=== PATIENT | female | born 1970 | race Caucasian/White ===

== ENCOUNTER → 2017-07-27 | Outpatient (CLI) | payer OTHER ==
--- NOTE | 2017-07-27 08:07 | MR ---
EXAMINATION TYPE: MR cervical spine wo con DATE OF EXAM: 07/27/2017 7:34 AM COMPARISON: NONE HISTORY: Cervicalgia, MARSH Multiplanar MultiSpin echo imaging of the cervical spine was performed. Comparison: none C2-C3: No evidence for degenerative disc disease. No disc bulge/herniation or protrusion. No Canal stenosis. Foramina are patent bilaterally. C3-C4: No evidence for degenerative disc disease. No disc bulge/herniation or protrusion. No Canal stenosis. Foramina are patent bilaterally. C4-C5: Moderate to severe disc desiccation. Posterocentral and greater towards the left subligamentou s disc herniation with effacement of the ventral thecal sac and ventral cord contact. There is eviden ce of mild to moderate central stenosis. Left foraminal encroachment. Increased signal within the cer vical spinal cord indicating a compressive myelopathy. C5-C6: Severe disc desiccation. Posterocentral moderate broad-based subligamentous disc herniation ef faces the ventral thecal sac. Mild mass effect upon the anterior portion of the cervical spinal cord. [id number] central stenosis. Bilateral foraminal encroachment. C6-C7: Moderate to severe disc desiccation. Posterocentral and greater towards the left subligamentou s disc herniation with effacement of the ventral thecal sac and ventral cord contact. There is eviden ce of mild to moderate central stenosis. Bilateral foraminal encroachment. Increased signal within th e cervical spinal cord indicating a compressive myelopathy. C7-T1: No evidence for degenerative disc disease. No disc bulge/herniation or protrusion. No Canal stenosis. Foramina are patent bilaterally. Cervical segments are intact. There is normal alignment. Cervical spinal cord is of normal signal. Craniovertebral junction relationships are within normal limits. Ventral spondylosis noted. IMPRESSION: 1. Multilevel degenerative disc disease with multilevel disc herniations and central stenosis. Compre ssive myelopathy as outlined above.
== END ==
LOC: RADMRIMAIN 06:46
PROVIDERS: ATTEND Family Medicine
DX: M48.02 Spinal stenosis, cervical region (principal); M50.223 Other cervical disc displacement at C6-C7 level; M50.30 Other cervical disc degeneration, unspecified cervical region; G95.20 Unspecified cord compression
CPT/HCPCS: 72141

== ENCOUNTER → 2021-05-13 | Outpatient (CLI) | payer MEDICARE ==
--- NOTE | 2021-05-14 07:46 | US ---
EXAMINATION TYPE: US thyroid st tissue head/neck DATE OF EXAM: 05/13/2021 COMPARISON: NONE CLINICAL HISTORY: E07.9 Thyroid Disorder. not on meds, patient states her neck feel swollen GLAND SIZE: Right Lobe: 3.6 x 1.5 x 1.5 cm Overall Parenchyma: homogenous Left Lobe: 3.6 x 1.4 x 1.1 cm Overall Parenchyma: homogeneous Isthmus Thickness: 0.4 cm NODULES RIGHT: # of nodules measured on right: 0 LEFT: # of nodules measured on left: 0 ISTHMUS: # of nodules measured in the isthmus: 0 Bilateral neck scanned, no evidence of lymphadenopathy. IMPRESSION: Normal-appearing thyroid gland. 2017 ACR TI-RADS LEVEL: *Highest TI-RADS level nodule reported
== END | disposition home or self-care (01) ==
LOC: RADUSWWP 15:45
PROVIDERS: ATTEND Family Medicine
DX: E07.9 Disorder of thyroid, unspecified (principal)
CPT/HCPCS: 76536

== ENCOUNTER 2021-06-27 08:33 | Day surgery (SDC) | payer MEDICARE ==
[2021-06-26 08:41] VITALS: BMI 31.7
--- NOTE | 2021-06-26 21:29 | HP ---
HISTORY AND PHYSICAL CHIEF COMPLAINT: Chronic laryngitis. HISTORY OF PRESENT ILLNESS: This patient is a 50-year-old female who is a known smoker. She presented to my office complaining of having chronic laryngitis with a 3- to 4-month history. The patient states that she is trying to quit, and she is down to approximately 5 to 10 cigarettes per day. Her voice has been quite raspy for the past 3 to 4 months. She denies any difficulty swallowing or referred otalgia or sore throat. At the time that she was seen in my office, examination of the larynx including indirect laryngoscopy revealed there was significant erythema and swelling of the vocal cords. I was not able to assess the anterior aspect of the true vocal cords because the patient has an overhanging epiglottis. There were no significant lesions noted in the right or left piriform sinus, base of tongue, valleculae or hypopharynx. Because of the patient's history of heavy smoking, it was recommended that she undergo a suspension microlaryngoscopy with possible lase of any type of benign lesions such as a polyp or nodule if found. Past medical history reveals she has NO KNOWN ALLERGIES TO MEDICATIONS. Current medications include Neurontin, Abilify, Protonix, Condon, Adderall, citalopram, diclofenac, Zofran, atorvastatin, Flexeril and Xanax. Previous surgeries include bilateral total knee replacements, right shoulder surgery, cholecystectomy, ankle surgery, oophorectomies and biopsy of her tongue approximately two years ago. REVIEW OF SYSTEMS: Cardiovascular is negative. Respiratory is positive for COPD/emphysema. The patient has a history of sleep apnea and uses a CPAP machine. Gastrointestinal is positive for GERD. Metabolic/endocrine is positive for hypercholesterolemia. Musculoskeletal is positive for osteoarthritis. The remainder of the review of system is essentially unremarkable. OBJECTIVE: The patient is normocephalic. Tympanic membranes are normal. Middle ear spaces are free of any fluid or infection. Pupils are equal, round, reactive to light and accommodation. Extraocular movements are within normal limits. Intranasal examination reveals moderate to severe septal deviation with compensatory hypertrophy of the inferior turbinates and a moderate amount of mucus on the mucous membranes and draining down the posterior pharynx. Examination of the larynx is as described above in the history of present illness. It will but not be repeated here. Palpation of the neck, cranial nerves 2 through 12, and the remainder of the head and neck exam are all within normal limits. Chest/cardiovascular: Both lung winslow are clear to percussion and auscultation. The patient is in regular sinus rhythm. S1 and S2 are present without evidence of any murmurs, S3s or S4s. Peripheral pulses are bilaterally symmetrical. Abdomen: There is no evidence any masses, megaly or tenderness. Abdomen is soft. Skin is unremarkable. Musculoskeletal and neurological are within normal limits. Pelvic/rectal exam is deferred at this time because the patient has this done on a regular basis at her family physician's office. The remainder of the physical exam is essentially unremarkable. IMPRESSION: Chronic laryngitis; suspect laryngeal lesion. PLAN: The patient is scheduled undergo a suspension microlaryngoscopy with possible laser under general anesthesia in a.m. Attention RNs in the pre-surgical area: I have ordered for this patient to receive 1000 mg of Ofirmev IV to be given once an intravenous line has been established. In addition to this, I have ordered for her to receive 3 grams of Ancef IV to be given once an intravenous line has been established. The Ancef is prophylaxis for her bilateral knee replacements. If the pharmacy department sends a different pre- surgical prophylactic antibiotic to the pre-surgical area for this patient, please cancel that order and return the medication to the pharmacy. Also make sure that the patient's account is credited appropriately. I have discussed the risks, benefits and alternative therapies for the above- mentioned procedure and for both sedation/analgesia as well as necessary blood product administration, if indicated, as they pertain to this patient. The patient has indicated his or her understanding and acceptance of the risks and procedures discussed. MMODL / IJN: [id number] / LIZETH
[~2021-06-27 08:33] MED LIST: ACETAMINOPHEN IV (For NPO) 1,000 MG in EMPTY BAG 1 BAG IVPB PRN; DEXAMETHASONE SOD PHOSPHATE 4 MG/ML 1 ML VIAL IV ONE; HYDROmorphone 0.5 MG/0.5 ML SYRINGE IVP PRN; LACTATED RINGERS 1,000 ML IV SCH; MIDAZOLAM 2 MG/2 ML VIAL IV PRN; ONDANSETRON 4 MG/2 ML VIAL IVP ONE; Pre Op ABX Message 1 EACH MISC MISCELLANE ONE; SCOPOLAMINE 1.5MG/72HR PATCH TRANSDERM ONE
[2021-06-27] MEDS ORDERED: LACTATED RINGERS 1,000 ML IV ONE (08:51)
[2021-06-27] MEDS ORDERED: MIDAZOLAM 2 MG/2 ML VIAL ONE (09:52)
[2021-06-27] MEDS ORDERED: SUCCINYLCHOLINE CHLORIDE 100 MG/5 ML SYR IV ONE (09:52)
[2021-06-27] MEDS ORDERED: fentaNYL (PF) 50 MCG/ML 2 ML AMP ONE (09:52)
[2021-06-27] MEDS ORDERED: DEXAMETHASONE SOD PHOSPHATE 10 MG/ML 1 ML VIAL ONE (09:52)
[2021-06-27] MEDS ORDERED: PROPOFOL 10 MG/ML 20 ML VIAL IV ONE (09:52)
[2021-06-27 11:05] VITALS: TEMP 97.3
[2021-06-27 11:28] VITALS: RESP 16
[2021-06-27 12:09] VITALS: BP 131/76; PULSE 68
--- NOTE | 2021-06-29 19:17 | OP ---
OPERATIVE REPORT DATE OF SURGERY: 06/27/2021 PREOPERATIVE DIAGNOSIS: Chronic laryngitis. POSTOPERATIVE DIAGNOSIS: Chronic laryngitis with a biopsy of the left true vocal cord, pathology pending. ANESTHESIA: General. PROCEDURE: Suspension microlaryngoscopy with biopsy of the left true vocal cord and CO2 laser of the left true vocal cord. OPERATING SURGEON: Dr. Loomis. COMPLICATIONS: None. ESTIMATED BLOOD LOSS: Zero. OPERATIVE PROCEDURE: The patient was placed on the operating table in supine position and after uneventful induction and endotracheal intubation, satisfactory general anesthesia was obtained. Next, the patient was draped in the usual and customary fashion, and following this, using the direct laryngoscope, this was introduced into the oropharynx and the entire hypopharynx including the right and left piriform sinus, and base of tongue, valleculae and epiglottis were inspected. Next, the tip of the laryngoscope was introduced into the laryngeal introitus. The Lewy apparatus was attached to the handle of the laryngoscope and the laryngoscope was suspended on the patient's chest. Next using the Zeiss operating microscope and under magnified visualization, one could see that the right true vocal cord appeared to be somewhat edematous but the left vocal cord appeared to have a polypoid-like change on the left on its edges. Therefore, using a pair of up-biting microlaryngeal forceps, several biopsies of left true vocal cord only were taken. Next, the entire left vocal cord was lasered using the CO2 laser at the appropriate setting. The patient was given 10 mg of Decadron intraoperatively to reduce any postoperative laryngeal edema. At this point, the procedure was terminated. There were no intraoperative complications. Patient tolerated the procedure well and was returned to the recovery room in satisfactory condition. MMODL / IJN: [id number] /
== END 2021-06-27 12:43 | disposition home or self-care (01) ==
LOC: OR 08:33
PROVIDERS: ATTEND Otolaryngology
DX: J37.0 Chronic laryngitis (principal); F17.210 Nicotine dependence, cigarettes, uncomplicated; J43.9 Emphysema, unspecified; K21.9 Gastro-esophageal reflux disease without esophagitis; E78.00 Pure hypercholesterolemia, unspecified; M19.90 Unspecified osteoarthritis, unspecified site; G47.33 Obstructive sleep apnea (adult) (pediatric); F41.9 Anxiety disorder, unspecified; F31.9 Bipolar disorder, unspecified; Z79.899 Other long term (current) drug therapy; Z96.653 Presence of artificial knee joint, bilateral; Z90.49 Acquired absence of other specified parts of digestive tract; Z90.722 Acquired absence of ovaries, bilateral; Z98.890 Other specified postprocedural states; Z98.1 Arthrodesis status; Z90.89 Acquired absence of other organs
CPT/HCPCS: 88305; 31541; J2250; J1100 ×2; J0690; J2405; J3010; J0131; J0330; J2704; J1170

== ENCOUNTER → 2021-10-29 | Outpatient (CLI) | payer MEDICARE ==
--- NOTE | 2021-10-29 13:11 | MR ---
EXAMINATION TYPE: MR lumbar spine wo con DATE OF EXAM: 10/29/2021 11:39 AM COMPARISON: NONE HISTORY: Low back pain w/ radiculopathy Multiplanar, MultiSpin echo imaging of the lumbar spine was performed. L1-L2: Mild disc desiccation. Right paracentral disc bulge with mild effacement ventral thecal sac. N o evidence for central stenosis or lateral recess stenosis. Foramina are patent bilaterally. L2-L3: Mild disc desiccation. Posterocentral disc bulge with mild effacement ventral thecal sac. No e vidence for central stenosis or lateral recess stenosis. Foramina are patent bilaterally. L3-L4: Mild disc desiccation. Posterocentral disc bulge with mild effacement ventral thecal sac. No e vidence for central stenosis or lateral recess stenosis. Foramina are patent bilaterally. L4-L5: Moderate disc desiccation. Broad-based posterior disc bulge or mild herniation. Effacement binu tral thecal sac. Hypertrophy ligamentum flavum and facet joint arthropathy resulting in mild central stenosis. Left foraminal encroachment noted. L5-S1: Mild disc desiccation. Posterocentral disc bulge with mild effacement ventral thecal sac. No e vidence for central stenosis or lateral recess stenosis. Bilateral foraminal encroachment. there appears to be a transitional vertebral segment with partial lumbarization of S1 and rudimentary S1-S2 disc. Prior to any scheduled intervention radiographic correlation is advised. Lumbar segments are intact. No paraspinal masses are identified. Conus medullaris has a normal appe arance. IMPRESSION: 1. Multilevel degenerative disc disease. 2. Multilevel disc bulging greatest at L4-5 where there is mild central stenosis. See above
== END | disposition home or self-care (01) ==
LOC: RADMRIMAIN 11:04
PROVIDERS: ATTEND Orthopaedic Surgery
DX: M51.16 Intervertebral disc disorders with radiculopathy, lumbar region (principal); M48.061 Spinal stenosis, lumbar region without neurogenic claudication
CPT/HCPCS: 72148

== ENCOUNTER → 2022-12-09 | Outpatient (CLI) | payer MEDICARE ==
--- NOTE | 2022-12-09 12:44 | FL ---
EXAMINATION TYPE: FL barium swallow DATE OF EXAM: 12/09/2022 CLINICAL INDICATION: 52-year-old female R13.10, dysphagia. Food sticking. Difficulty swallowing. Refl ux at bed. COMPARISON: None Total Fluoroscopy Time: 2 minutes 40 seconds 466 mGycm2 DAP 64 images obtained. FINDINGS: Patient is status post C4-C7 ACDF. There are recurrent episodes of deep penetration and coating of the vocal folds and eventual mild asp iration. Otherwise, hypopharyngeal anatomy appears maintained. Normal course of the thoracic esophagus. There is lobulated irregularity of the distal esophagus, possibly representing combination of pulse i n diverticula and mild strictures. Recommend direct visualization to further evaluate. Additional mild tertiary peristalsis is demonstrated. Mild delay in clearance of contrast from the es ophagus. Due to the aspiration, we did not perform further supine/prone imaging to assess for reflux IMPRESSION: 1. Recurrent episodes of deep penetration with coating of the vocal folds and eventual mild aspiratio n. Recommend further speech pathology evaluation. 2. [id number] esophageal dysmotility. 3. Prominent lobulated irregularity of the distal esophagus could be on the basis of pulsion divertic sheri and strictures. Recommend direct visualization to exclude a mucosal abnormality here.
== END | disposition home or self-care (01) ==
LOC: RADUSWWP 09:49
PROVIDERS: ATTEND Family Medicine
DX: K22.4 Dyskinesia of esophagus (principal); R13.10 Dysphagia, unspecified; R49.0 Dysphonia
CPT/HCPCS: 74220

== ENCOUNTER 2024-10-04 09:21 | Emergency (ER) | payer MEDICARE ==
[2024-10-04 09:27] VITALS: PULSE 52; TEMP 97.5
[2024-10-04 11:39] LABS: Basophils # (A) 0.02 10*3/uL (0.00-0.10); Basophils % (A) 0.2 %; Eosinophils # (A) 0.01 10*3/uL (0.04-0.35); Eosinophils % (A) 0.1 %; HCT 43.2 % (37.2-46.3); HGB 14.9 g/dL (12.0-15.0); Lymphocytes # (A) 1.19 10*3/uL (0.90-5.00); Lymphocytes % (A) 11.6 %; MCH 32.2 pg (27.0-32.0); MCHC 34.5 g/dL (32.0-37.0); MCV 93.3 fL (80.0-97.0); Mean Platelet Volume 9.4 fL (9.5-12.2); Monocytes % (A) 6.8 %; Neutrophils # (A) 8.32 10*3/uL (1.80-7.70); Neutrophils % (A) 80.8 %; Platelet Count 287 10*3/uL (140-440); RBC 4.63 10*6/uL (4.10-5.20); RDW 12.1 % (11.5-14.5); WBC 10.29 10*3/uL (4.50-10.00)
[2024-10-04] MEDS: LACTATED RINGERS 1,000 ML IV ONE (11:58)
[2024-10-04 11:59] LABS: ALT 18 U/L (4-34); African American GFR (CKD) >90 (>60 ml/min/1.73 sqM); Amylase 37 U/L (30-110); Anion Gap 9 mmol/L; Blood Urea Nitrogen 16 mg/dL (7-17); Calcium 10.4 mg/dL (8.4-10.2); Carbon Dioxide 23 mmol/L (22-30); Chloride 100 mmol/L (98-107); Glucose 183 mg/dL (74-99); Lipase 67 U/L (23-300); Non-African American GFR(CKD) >90 (>60 ml/min/1.73 sqM); Sodium 132 mmol/L (137-145)
[2024-10-04] MEDS: PANTOPRAZOLE 40 MG/10 ML VIAL IVP STA (11:59)
[2024-10-04] MEDS: ONDANSETRON 4 MG/2 ML VIAL IVP STA (11:59)
[2024-10-04 12:01] LABS: INR 1.1 (<1.2); Partial Thromboplastin Time 21.7 sec (22.0-30.0); Prothrombin Time 11.8 sec (10.0-12.5)
[2024-10-04 12:31] LABS: AST 36 U/L (14-36); Albumin 4.8 g/dL (3.5-5.0); Total Bilirubin 1.1 mg/dL (0.2-1.3)
[2024-10-04 12:32] LABS: Alkaline Phosphatase 68 U/L (38-126)
[2024-10-04] MEDS: HYDROmorphone 1 MG/ML 1 ML SYRINGE IVP STA (12:39)
--- NOTE | 2024-10-04 13:41 | CT ---
EXAMINATION TYPE: CT abdomen pelvis w con CT DLP: 1126.2 mGycm, Automated exposure control for dose reduction was used. DATE OF EXAM: 10/04/2024 1:32 PM COMPARISON: None CLINICAL INDICATION:Female, 54 years old with history of abdominal pain; ABD pain TECHNIQUE: Standard CT of the abdomen and pelvis following the administration of 100 cc of Isovue 3 00 IV contrast material. Coronal and sagittal reformats were performed. FINDINGS: LOWER CHEST: Minimal posterior dependent subsegmental atelectasis is noted. ABDOMEN LIVER: Focal fatty infiltration adjacent to the falciform ligament in segment IVb GALLBLADDER AND BILE DUCTS: Gallbladder is surgically absent with mild intrahepatic and extra hepatic biliary dilatation likely physiologic and a postcholecystectomy change. No evidence of choledocholit hiasis. PANCREAS: Unremarkable. SPLEEN: Unremarkable. ADRENAL GLANDS: Unremarkable. KIDNEYS AND URETERS: No evidence of hydronephrosis or renal calculus. The kidneys enhance symmetrical ly. Contrast is demonstrated within both collecting systems on the delayed phase. PELVIS BLADDER: Incompletely distended but grossly unremarkable. REPRODUCTIVE: Unremarkable. ABDOMEN & PELVIS STOMACH AND BOWEL: Stomach and duodenum are unremarkable. The appendix is within normal limits. There is some submucosal fat deposition with trace stranding involving the ascending colon. No evidence of bowel obstruction. PERITONEUM: No evidence of pneumoperitoneum or free fluid. Enhancing soft tissue nodule measured 1.8 cm within the anterior upper left pelvis peritoneum (series 201, image 65). VASCULATURE: Mild to moderate atherosclerotic calcifications are present throughout the abdominal aor ta and its branches. No evidence of aortic aneurysm. MUSCULOSKELETAL: No acute osseous abnormalities. Mild S-shaped scoliotic curvature of the thoracolumb ar spine. Grade 1 retrolisthesis of L3 on L4. Multilevel degenerative disc disease. L5 transverse pro cess pseudoarticulation with the sacrum. LYMPH NODES: No evidence for lymphadenopathy. SOFT TISSUE/ABDOMINAL WALL: Unremarkable IMPRESSION: 1. Submucosal fat deposition with trace stranding changes along the ascending colon concerning for p ossible acute colitis. Possibly from an infectious or inflammatory etiology. 2. Nonspecific enhancing soft tissue nodule within the anterior upper left pelvis. Recommend further evaluation with outpatient ultrasound. [facility], , 10/04/2024 1:39 PM
[2024-10-04 13:47] LABS: Amorphous Sediment,Urine Rare /hpf; Appearance,Urine Cloudy (Clear); Bilirubin,Urine Negative (Negative); Blood,Urine Negative (Negative); Budding Yeast,Urine Rare /hpf; Color,Urine Yellow; Glucose,Urine (UA) 1+ (Negative); Leukocyte Esterase,Urine Negative (Negative); Mucus,Urine Rare /hpf; Nitrite,Urine Negative (Negative); Protein,Urine Trace (Negative); RBC,Urine 2 /hpf (0-5); Urobilinogen,Urine <2.0 mg/dL (<2.0); WBC,Urine 4 /hpf (0-5)
[2024-10-04 13:51] LABS: Ketones,Urine 3+ (Negative)
--- NOTE | 2024-10-04 14:49 | ED ---
General Adult HPI - General Chief complaint: Nausea/Vomiting/Diarrhea Stated complaint: Vomiting Time Seen by Provider: 10/04/24 10:52 Source: patient, RN notes reviewed, old records reviewed Mode of arrival: ambulatory Limitations: no limitations - History of Present Illness Initial comments: Patient is a 54-year-old female who presents emergency department complaining of abdominal discomfort which is somewhat chronic as well as nausea and vomiting. Has somewhat chronic abdominal discomfort that is nonfocal. States worse over the last 2 days. Has been throwing up as well. Unable to tolerate oral intake as well as her chronic Percocets. Denies any diarrhea or constipation. Presents for further evaluation at this time. Does have a diagnosis of an esophageal dysmotility syndrome which she is following up with [facility] for. - Related Data Home Medications Medication Instructions Recorded Confirmed ALPRAZolam [Xanax] 3 mg PO DIRECTED PRN 05/08/15 08/29/24 traZODone HCL 100 mg PO HS 05/08/15 08/29/24 Atorvastatin [Lipitor] 80 mg PO HS 06/26/21 08/29/24 Gabapentin 600 mg PO TID 06/26/21 08/29/24 Pantoprazole [Protonix] 40 mg PO DAILY 08/23/24 08/29/24 Dicyclomine [Bentyl] 10 mg PO TID PRN 08/24/24 08/29/24 Glucosamine Sulfate 1 dose PO DAILY 08/24/24 08/29/24 Magnesium 1 dose PO DAILY 08/24/24 08/29/24 Meloxicam [Mobic] 15 mg PO DAILY 08/24/24 08/29/24 Multivit-Min/Iron Fum/Folic AC 1 each PO DAILY 08/24/24 08/29/24 [One-A-Day Women's Complete Tab] Naproxen Sodium [Aleve] 220 mg PO DAILY PRN 08/24/24 08/29/24 Ondansetron [Zofran] 4 mg PO TID PRN 08/24/24 08/29/24 oxyCODONE HCL/ACETAMINOPHEN 1 tab PO QID 08/24/24 08/29/24 [oxyCODONE HCL/ACETAMINOPHEN 7.5-325] Allergies Allergy/AdvReac Type Severity Reaction Status Date / Time haloperidol [From Haldol] Allergy Severe "Jaw Verified 10/04/24 09:27 locked up" and respiratory distress. metals Allergy Rash/Hives Uncoded 10/04/24 09:27 Review of Systems ROS Statement: Those systems with pertinent positive or pertinent negative responses have been documented in the HPI. Review of Systems: CONST: Denies fever EYES: Denies blurry vision ENT: Denies nasal congestion C/V: Denies Chest pain RESP: Denies shortness of breath GI: Endorses chronic abdominal pain : Denies dysuria SKIN: Denies rash. MSK: Denies joint pain. NEURO: Denies headache ROS Other: All systems not noted in ROS Statement are negative. Past Medical History Past Medical History: COPD, GERD/Reflux, Hyperlipidemia, Osteoarthritis (OA), Sleep Apnea/CPAP/BIPAP Additional Past Medical History / Comment(s): Gastritis. No CPAP use. Chronic lower back pain-Sacroiliitis. Had hospitalization June 2024 for ear infection- had one seizure due to very high fever. History of Any Multi-Drug Resistant Organisms: None Reported Past Surgical History: Adenoidectomy, Joint Replacement, Tonsillectomy Additional Past Surgical History / Comment(s): Bilateral knee replacements, left shoulder replacement, cervical fusion, bilateral oophorectomy, B/L ankle surgery. Past Anesthesia/Blood Transfusion Reactions: No Reported Reaction Past Psychological History: Anxiety, Bipolar Smoking Status: Current every day smoker Past Alcohol Use History: None Reported Past Drug Use History: Marijuana - Past Family History Mother Family Medical History: Cancer Father Family Medical History: Cancer Brother(s) Family Medical History: Cancer General Exam - General Exam Comments Initial Comments: General: Appears in mild distress secondary to abdominal pain. HEAD: Normal with no signs of head trauma. EYES: PERRLA, EOMI, conjunctiva normal, no discharge. ENT: Hearing grossly intact, normal oropharynx. RESPIRATORY: Clear breath sounds bilaterally. No wheezes, rales, or rhonchi. C/V: Regular rate and rhythm. S1 and S2 auscultated, no edema, peripheral pulses 2+ and intact throughout ABD: Abdomen soft, nondistended. Mildly tender to palpation periumbilically with no obvious acute focal tenderness. No guarding or rebound tenderness. No peritoneal signs. EXT: Normal range of motion, no obvious deformity SKIN: No rashes or lesions observed on exposed skin. NEURO: Alert and oriented x 4. Limitations: no limitations Course Vital Signs 10/04/24 10/04/24 09:23 15:03 Temperature 97.5 F L Pulse Rate 52 L 52 L Respiratory 18 20 Rate Blood Pressure 172/92 193/89 O2 Sat by Pulse 98 96 Oximetry Medical Decision Making - Medical Decision Making Was pt. sent in by a medical professional or institution (, [facility], [facility], urgent care, hospital, or senior living...) When possible be specific @ -No Did you speak to anyone other than the patient for history (EMS, parent, family, police, friend...)? What history was obtained from this source @ -No Did you review nursing and triage notes (agree or disagree)? Why? @ -I reviewed and agree with nursing and triage notes Were old charts reviewed (outside hosp., previous admission, EMS record, old EKG, old radiological studies, urgent care reports/EKG's, senior living records)? Report findings @ -Compared with EKG from April 2015 which shows chronic sinus bradycardia. Differential Diagnosis (chest pain, altered mental status, abdominal pain women, abdominal pain men, vaginal bleeding, weakness, fever, dyspnea, syncope, headache, dizziness, GI bleed, back pain, seizure, CVA, palpatations, mental health, musculoskeletal)? @ -Differential Abdominal Pain Women: Appendicitis, Cholecystitis, diverticulosis, ischemic bowel, pancreatitis, hepatitis, UTI, gastroenteritis, AAA, incarcerated hernia, bowel obstruction, constipation, inflammatory bowel, hepatitis, peptic ulcer disease, splenic infarction, perforated viscus, vulvitis, ovarian torsion, PID, kidney stone, placenta abruption, this is not meant to be an all-inclusive list EKG interpreted by me (3pts min.). @ -As above X-rays interpreted by me (1pt min.). @ -None done CT interpreted by me (1pt min.). @ -CT abdomen pelvis shows uncomplicated colitis U/S interpreted by me (1pt. min.). @ -None done What testing was considered but not performed or refused? (CT, X-rays, U/S, labs)? Why? @ -None What meds were considered but not given or refused? Why? @ -None Did you discuss the management of the patient with other professionals (pr ofessionals i.e. [facility], [employer], lab, RT, psych nurse, manager social, transport medic, teacher, staff antisubmarine officer, outpatient case manager)? Give summary @ -No Was smoking cessation discussed for >3mins.? @ -No Was critical care preformed (if so, how long)? @ -No Were there social determinants of health that impacted care today? How? (Homelessness, low income, unemployed, alcoholism, drug addiction, transportation, low edu. Level, literacy, decrease access to med. care, usp, rehab)? @ -No Was there de-escalation of care discussed even if they declined (Discuss DNR or withdrawal of care, Hospice)? DNR status @ -No What co-morbidities impacted this encounter? (DM, HTN, Smoking, COPD, CAD, Cancer, CVA, ARF, Chemo, Hep., AIDS, mental health diagnosis, sleep apnea, morbid obesity)? @ -None Was patient admitted / discharged? Hospital course, mention meds given and route, prescriptions, significant lab abnormalities, going to OR and other pertinent info. @ -Patient presents with acute on chronic abdominal pain with nausea and vomiting. We will obtain abdominal laboratory studies as well as CT abdomen pelvis. Symptomatically treat with IV fluids, antiemetics, Protonix, pain meds. Patient was in agreement this plan. Vitals are within acceptable limits. CT abdomen pelvis shows uncomplicated colitis. Labs remarkable for mild leukocytosis of 10.29, mild lactic acidosis of 2.4, as well as 3+ ketones in urine. Likely secondary to dehydration from nausea and vomiting. Remainder of the labs unremarkable. I update the patient. Symptoms are improved. Tolerating oral intake. I believe it is safer to be discharged home and she was in agreement this plan. She will follow-up with her GI specialist at [facility]. Strict return precautions discussed. Given a starter pack of Zofran for home. I instructed the patient to follow up with their PCP in the next 1-3 days. I explained that the patient should return to the emergency department if they experience any worsening symptoms. Strict return precautions were discussed with the patient. The patient expressed understanding of these instructions. I answered all questions that the patient had. The patient was discharged home in good condition with their prescriptions and follow up information. Undiagnosed new problem with uncertain prognosis? @ -No Drug Therapy requiring intensive monitoring for toxicity (Heparin, Nitro, Insulin, Cardizem)? @ -No Were any procedures done? @ -No Diagnosis/symptom? @ -Colitis, dehydration Acute, or Chronic, or Acute on Chronic? @ -Acute Uncomplicated (without systemic symptoms) or Complicated (systemic symptoms)? @ -Uncomplicated Side effects of treatment? @ -No Exacerbation, Progression, or Severe Exacerbation? @ -No Poses a threat to life or bodily function? How? (Chest pain, [place], [place], pneumonia, PE, COPD, DKA, ARF, appy, cholecystitis, CVA, Diverticulitis, Homicidal, Suicidal, threat to staff... and all critical care pts) @ - unlikely at this time - Lab Data Result diagrams: 10/04/24 11:25 10/04/24 11:25 Lab Results 10/04/24 10/04/24 10/04/24 Range/Units 11:25 11: 11:25 WBC 10.29 H (4.50-10.00) 10*3/uL RBC 4.63 (4.10-5.20) 10*6/uL Hgb 14.9 (12.0-15.0) g/dL Hct 43.2 (37.2-46.3) % MCV 93.3 (80.0-97.0) fL MCH 32.2 H (27.0-32.0) pg MCHC 34.5 (32.0-37.0) g/dL Plt Count 287 (140-440) 10*3/uL MPV 9.4 L (9.5-12.2) fL Immature Gran % (Auto) 0.5 % Neutrophils % 80.8 % Lymphocytes % 11.6 % Monocytes % 6.8 % Eosinophils % 0.1 % Basophils % 0.2 % Immature Gran # 0.05 H (0.00-0.04) 10*3/uL Neutrophils # 8.32 H (1.80-7.70) 10*3/uL Lymphocytes # 1.19 (0.90-5.00) 10*3/uL Monocytes # 0.70 (0.20-1.00) 10*3/uL Eosinophils # 0.01 L (0.04-0.35) 10*3/uL Basophils # 0.02 (0.00-0.10) 10*3/uL PT 11.8 (10.0-12.5) sec INR 1.1 (<1.2) APTT 21.7 L (22.0-30.0) sec Sodium 132 L (137-145) mmol/L Potassium 5.0 (3.5-5.1) mmol/L Chloride 100 (98-107) mmol/L Carbon Dioxide 23 (22-30) mmol/L Anion Gap 9 mmol/L BUN 16 (7-17) mg/dL Creatinine 0.51 L (0.52-1.04) mg/dL Est GFR (CKD-EPI)AfAm >90 (>60 ml/min/1.73 sqM) Est GFR (CKD-EPI)NonAf >90 (>60 ml/min/1.73 sqM) Glucose 183 H (74-99) mg/dL Lactic Ac Sepsis Rflx Plasma Lactic Acid Tayo (0.7-2.0) mmol/L Calcium 10.4 H (8.4-10.2) mg/dL Total Bilirubin 1.1 (0.2-1.3) mg/dL AST 36 (14-36) U/L ALT 18 (4-34) U/L Alkaline Phosphatase 68 (38-126) U/L Total Protein 8.0 (6.3-8.2) g/dL Albumin 4.8 (3.5-5.0) g/dL Amylase 37 (30-110) U/L Lipase 67 (23-300) U/L Urine Color Urine Appearance (Clear) Urine pH (5.0-8.0) Ur Specific [place] (1.001-1.035) Urine Protein (Negative) Urine Glucose (UA) (Negative) Urine Ketones (Negative) Urine Blood (Negative) Urine Nitrite (Negative) Urine Bilirubin (Negative) Urine Urobilinogen (<2.0) mg/dL Ur Leukocyte Esterase (Negative) Urine RBC (0-5) /hpf Urine WBC (0-5) /hpf Amorphous Sediment (None) /hpf Urine Mucus (None) /hpf Urine Yeast (Budding) (None) /hpf 10/04/24 10/04/24 10/04/24 Range/Units 11:25 12:34 13:12 WBC (4.50-10.00) 10*3/uL RBC (4.10-5.20) 10*6/uL Hgb (12.0-15.0) g/dL Hct (37.2-46.3) % MCV (80.0-97.0) fL MCH (27.0-32.0) pg MCHC (32.0-37.0) g/dL Plt Count (140-440) 10*3/uL MPV (9.5-12.2) fL Immature Gran % (Auto) % Neutrophils % % Lymphocytes % % Monocytes % % Eosinophils % % Basophils % % Immature Gran # (0.00-0.04) 10*3/uL Neutrophils # (1.80-7.70) 10*3/uL Lymphocytes # (0.90-5.00) 10*3/uL Monocytes # (0.20-1.00) 10*3/uL Eosinophils # (0.04-0.35) 10*3/uL Basophils # (0.00-0.10) 10*3/uL PT (10.0-12.5) sec INR (<1.2) APTT (22.0-30.0) sec Sodium (137-145) mmol/L Potassium (3.5-5.1) mmol/L Chloride (98-107) mmol/L Carbon Dioxide (22-30) mmol/L Anion Gap mmol/L BUN (7-17) mg/dL Creatinine (0.52-1.04) mg/dL Est GFR (CKD-EPI)AfAm (>60 ml/min/1.73 sqM) Est GFR (CKD-EPI)NonAf (>60 ml/min/1.73 sqM) Glucose (74-99) mg/dL Lactic Ac Sepsis Rflx Y Plasma Lactic Acid Tayo 2.4 H* (0.7-2.0) mmol/L Calcium (8.4-10.2) mg/dL Total Bilirubin (0.2-1.3) mg/dL AST (14-36) U/L ALT (4-34) U/L Alkaline Phosphatase (38-126) U/L Total Protein (6.3-8.2) g/dL Albumin (3.5-5.0) g/dL Amylase (30-110) U/L Lipase (23-300) U/L Urine Color Yellow Urine Appearance Cloudy H (Clear) Urine pH 8.0 (5.0-8.0) Ur Specific [place] 1.020 (1.001-1.035) Urine Protein Trace H (Negative) Urine Glucose (UA) 1+ H (Negative) Urine Ketones 3+ H (Negative) Urine Blood Negative (Negative) Urine Nitrite Negative (Negative) Urine Bilirubin Negative (Negative) Urine Urobilinogen <2.0 (<2.0) mg/dL Ur Leukocyte Esterase Negative (Negative) Urine RBC 2 (0-5) /hpf Urine WBC 4 (0-5) /hpf Amorphous Sediment Rare H (None) /hpf Urine Mucus Rare H (None) /hpf Urine Yeast (Budding) Rare H (None) /hpf - EKG Data -: EKG Interpreted by Me EKG Comments: 12-lead Electrocardiogram Interpretation Note EKG was reviewed and interpreted by myself. 12-lead ECG performed at 1107 is interpreted by me as revealing sinus bradycardia at a rate of 40 beats per minute. Altair is normal. FL interval is 154 ms, QRS duration is 96 ms, QTc is 1 453 ms.. There were no ST or T wave abnormalities to suggest myocardial ischemia or injury. R wave progression across the precordium was satisfactory. By my interpretation this EKG is non-diagnostic for acute ischemia. When compared with EKG from April 2015, chronic bradycardia present. Disposition Clinical Impression: Colitis, Dehydration Disposition: HOME SELF-CARE Condition: Good Instructions (If sedation given, give patient instructions): Colitis (ED) Is patient prescribed a controlled substance at d/c from ED?: No Referrals: Patricia Cadena MD [Primary Care Provider] - 1-2 days Time of Disposition: 14:49
[2024-10-04] MEDS: ONDANSETRON 4 MG ODT STARTER PACK 2 TAB BTL PO STA (14:58)
[2024-10-04 15:05] VITALS: BP 193/89; RESP 20
== END 2024-10-04 15:06 | disposition home or self-care (01) ==
LOC: EC 09:21
DX: K52.9 Noninfective gastroenteritis and colitis, unspecified (principal); E86.0 Dehydration; F17.200 Nicotine dependence, unspecified, uncomplicated; Z88.8 Allergy status to other drugs, medicaments and biological substances
CPT/HCPCS: 36415; 93005; 80053; 82150; 83605; 83690; 85025; 85610; 85730; 81001; 74177; 99284; 96374; 96375 ×2; 96361 ×2; J2405; J1171; S0119; Q9967; J2470